=== PATIENT | male | born 1995 | race Caucasian/White ===

== ENCOUNTER 2019-12-02 08:02 | Emergency (ER) | payer OTHER, SELFPAY ==
[2019-12-02 08:29] VITALS: BP 131/75; PULSE 96; RESP 16; TEMP 36.6; O2SAT 98
--- NOTE | 2019-12-02 08:30 | ED.NAVMDI ---
HPI - Nausea/Vomiting/Diarrhea General Chief complaint: Nausea/Vomiting/Diarrhea Stated complaint: vomiting History of Present Illness HPI Narrative: This is a 24 year old male that woke up around 0300 and was vomiting approx 10-12 times per patient . Patient states that he has some stomach and and his stool is loose. Patient denies fever or dizziness. Related Data Allergies Allergy/AdvReac Type Severity Reaction Status Date / Time No Known Allergies Allergy Verified 12/02/19 08:32 Review of Systems Review of Systems: Narrative: CONSTITUTIONAL: Denies fever, chills, or sweats. EYES: Denies visual changes, redness, or discharge. ENT: Denies rhinorrhea, congestion, sore throat, or otalgia. CARDIOVASCULAR:Denies chest pain, palpitations, or edema. RESPIRATORY: Denies cough or dyspnea. GASTROINTESTINAL: reports abdominal pain, nausea, vomiting, or diarrhea. GENITOURINARY: Denies dysuria or hematuria. SKIN:[Denies rash or itching. MUSCULOSKELETAL:Denies back pain, joint pain, or myalgia. NEUROLOGIC: Denies headache, numbness, or weakness. PSYCHIATRIC:Denies anxiety or depression PMFSH Comments At time as signature, I have reviewed and agree with nursing past medical, social, surgical and family history. Please see nursing chart for further information. There is no relevant family history pertinent to the presenting complaint. Exam Narrative: Exam Narrative: GENERAL:Well-appearing, well-nourished, and in no acute distress. HEAD:Normocephalic, atraumatic. EYES: PERRLA and EOMI. ENT: Nares clear, no rhinorrhea or epistaxis. Mucous membranes moist. NECK: Supple. CHEST: Clear to auscultation. No respiratory distress. HEART: Regular rate and rhythm. No murmur heard. Normal peripheral pulses. ABDOMEN: Soft, tender right upper quad, nondistended, normal active bowel sounds. EXTREMITIES: Normal range of motion. No edema. SKIN: Warm, dry, no rash. NEURO: No focal deficits. Alert and oriented x3. Course Vital Signs Vital signs: Vital Signs Temperature 97.8 F 12/02/19 08:29 Pulse Rate 96 12/02/19 08:29 Respiratory Rate 16 12/02/19 08:29 Blood Pressure 131/75 12/02/19 08:29 Pulse Oximetry 98 12/02/19 08:29 Temperature 97.8 F 12/02/19 08:29 Pulse Rate 96 12/02/19 08:29 Respiratory Rate 16 12/02/19 08:29 Blood Pressure 131/75 12/02/19 08:29 Pulse Oximetry 98 12/02/19 08:29 MDM - Nausea/Vomiting/Diarrhea Differential Diagnosis Differential diagnosis: Likely traveler's diarrhea, gastroenteritis, dehydration and other Discharge Plan Discharge Clinical Impression: Gastroenteritis Patient Disposition: Home, Self-Care Condition: Stable Instructions: Antibiotic Form, Gastroenteritis (ED) Additional Instructions: No serious cause of abdominal pain is found at this time. It is important to carefully watch for changes in the abdominal pain that might suggest a serious condition. See your doctor or return to the emergency department immediately if your condition gets worse. These symptoms suggest serious causes of abdominal pain: Your unable to walk easily or walking in a bent over position. You are experiencing pain in the right lower part of her abdomen. Stepping or jumping results in severe pain. The abdomen is hard and painful when you press on it. There is severe abdominal pain when coughing. You are vomiting or gagging. Vomiting is bloody or green or looks like chocolate or coffee. The belly looks very full or basic. You're experiencing severe pain every 3-20 minutes. The stool is bloody or black. Prescriptions: New ondansetron HCl [Zofran] 4 mg tablet 4 mg PO Q8H PRN (Reason: nausea and vomiting) Qty: 10 RF: 0 Follow-up/Referrals: UNKNOWN,DOCTOR [Primary Care Provider] - Stand Alone Forms: Work/School Release IP Time of Disposition: 08:54
== END 2019-12-02 08:59 | disposition home or self-care (01) ==
PROVIDERS: Emergency Provider Nurse Practitioner Family
DX: K52.9 Noninfective gastroenteritis and colitis, unspecified (principal)
CPT/HCPCS: 81003; 99203; G0463